=== PATIENT | female | born 1960 | race Caucasian/White ===

== ENCOUNTER 2023-02-19 00:25 | Emergency (ER) | payer OTHER, SELFPAY ==
[2023-02-19] MEDS ORDERED: NA CHLORIDE 0.9% 1,000 ML ONE (01:18)
[2023-02-19] MEDS ORDERED: ONDANSETRON 4 MG/2 ML VIAL ONE (01:18)
[2023-02-19] MEDS ORDERED: MORPHINE 4 MG/ML SYR ONE ×2 (01:18→03:14)
[2023-02-19 01:39] LABS: Absolute Lymphocytes (CBC) 2.2 K/uL (0.7-4.9); Lymphocytes % 36.2 % (15.3-44.8); MCV 96.5 fL (80-100); MPV 7.8 fL (7.6-11.3); RBC Red Blood Cell Count 4.25 M/uL (3.86-4.86)
[2023-02-19 01:54] LABS: ALT/SGPT 26 U/L (13-56); AST/SGOT 26 U/L (15-37); Albumin 3.6 g/dL (3.4-5.0); Alkaline Phosphatase 103 U/L (45-117); BUN Blood Urea Nitrogen 21 mg/dL (7-18); Bicarbonate 27 mEq/L (21-32); Bilirubin Total 0.3 mg/dL (0.2-1.0); Glomerular Filtration Rate 69 ml/min (=/>90); Glucose Level 98 mg/dL (74-106); Potassium 3.8 mEq/L (3.5-5.1); Protein, Total 7.4 g/dL (6.4-8.2); Sodium Level 138 mEq/L (136-145)
[2023-02-19 01:57] LABS: Bilirubin Direct < 0.1 mg/dL (0-0.2); Bilirubin Indirect, Calculated ND mg/dL (0.2-0.8)
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
[2023-02-19] MEDS ORDERED: methocarbamoL 750 MG TAB ONE (04:26)
[2023-02-19] MEDS ORDERED: IBUPROFEN 200 MG TAB PO ONE (04:26)
[2023-02-19] MEDS ORDERED: HYDROCODONE/APAP 10/325 TAB ONE (04:27)
[2023-02-19] MEDS ORDERED: IBUPROFEN 400 MG TAB ONE (04:27)
[2023-02-19 04:38] VITALS: BP 115/74; TEMP 98; O2SAT 97
--- NOTE | 2023-02-19 14:54 | RAD REPORT ---
EXAM DESCRIPTION: RAD - Knee Right 3 View - 02/19/2023 1:11 am CLINICAL HISTORY: Right knee PAIN COMPARISON: None. TECHNIQUE: XR KNEE 3 VIEWS 02/19/2023 12:36 AM CDT FINDINGS: There is no fracture. Joint spaces are preserved. Soft tissues are unremarkable. IMPRESSION: No acute osseous findings. Electronically signed by: Ezio Cordova MD 02/19/2023 2:58 AM CDT Due to temporary technical issues with the PACS/Fluency reporting system, reports are being signed by the in house radiologists without review as a courtesy to insure prompt reporting. The interpreting radiologist is fully responsible for the content of the report.
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
--- NOTE | 2023-02-19 15:12 | RAD REPORT ---
EXAM DESCRIPTION: RAD - Knee Left 3 View - 02/19/2023 1:11 am CLINICAL HISTORY: Left knee PAIN COMPARISON: None. TECHNIQUE: XR KNEE 3 VIEWS 02/19/2023 12:37 AM CDT FINDINGS: There is no fracture. Joint spaces are preserved. Soft tissues are unremarkable. IMPRESSION: No acute osseous findings. Electronically signed by: Ezio Cordova MD 02/19/2023 2:58 AM CDT Due to temporary technical issues with the PACS/Fluency reporting system, reports are being signed by the in house radiologists without review as a courtesy to insure prompt reporting. The interpreting radiologist is fully responsible for the content of the report.
== END 2023-02-19 04:28 | disposition home or self-care (01) ==
LOC: ER 00:25
DX: S13.4XXA Sprain of ligaments of cervical spine, initial encounter (principal); S30.0XXA Contusion of lower back and pelvis, initial encounter; S80.02XA Contusion of left knee, initial encounter; S80.01XA Contusion of right knee, initial encounter; S50.01XA Contusion of right elbow, initial encounter; S29.9XXA Unspecified injury of thorax, initial encounter; V03.90XA Pedestrian on foot injured in collision with car, pick-up truck or van, unspecified whether traffic or nontraffic accident, initial encounter
CPT/HCPCS: 36415; 70450; 71260; 72125; 74177; 80048; 80076; 85025; 86850; 86900; 86901; 96361; 96374; 96375; 99285; J2405; J7030; Q9967